=== PATIENT | female | born 1975 | race Two or more races ===

== ENCOUNTER 2018-04-25 09:27 | Inpatient (IN) | payer OTHER, MEDICAID ==
[~2018-04-25] VITALS: Ht 154.9 cm; Wt 55.0 kg
[2018-04-25 09:39] VITALS: Ht 154.9 cm; Wt 55.0 kg
[2018-04-25 12:04] LABS: PLATELET COUNT 296 x10^3mcL (130-400); RED CELL DISTRIBUTION WIDTH 13.5 % (11.5-14.5)
[2018-04-25 12:13] LABS: CALCIUM 8.4 mg/dL (8.5-10.1); CARBON DIOXIDE 25.3 mmol/L (21-32); CREATININE SERUM 1.3 mg/dL (0.6-1.0); POTASSIUM SERUM 3.7 mmol/L (3.5-5.1)
[2018-04-25 12:13] LABS: UA SPECIFIC GRAVITY >=1.030 (1.005-1.035); microscopic required? YES; urine erythrocyte 2+ (NEGATIVE)
[2018-04-25 12:24] LABS: T3 TOTAL 0.61 ng/mL
[2018-04-25 12:25] LABS: BILIRUBIN TOTAL 0.97 mg/dL (0.20-1.00); TOTAL PROTEIN, SERUM 6.8 g/dL (6.4-8.2)
[2018-04-25 12:26] LABS: ALBUMIN 3.3 g/dL (3.4-5.0)
[2018-04-25 12:35] LABS: C REACTIVE PROTEIN 18.9 mg/dL (<=0.9)
[2018-04-25 12:44] LABS: FREE T4 1.18 ng/dL (0.76-1.46); FREE THYROXINE INDEX 2.2 ug/dL (1.4-4.5); T4(THYROXINE) 6.6 ug/dL (4.7-13.3)
[2018-04-25 12:45] LABS: BASOPHIL 0 % (0-2); MONOCYTE 6 % (0-7)
[2018-04-25 12:46] LABS: BAND NEUTROPHIL 10 % (0-10); SEGMENTED NEUTROPHILS 82 % (37-75)
[2018-04-25 12:57] LABS: ERYTHROCYTE SED RATE 11 mm/hr (0-20)
[2018-04-25 12:59] LABS: CK-MB < 0.5 ng/mL (0-3.6); CREATINE KINASE 43 U/L (26-192)
[2018-04-25 14:30] VITALS: BP 96/53
[2018-04-25 18:19] VITALS: BP 80/40
[2018-04-25 18:49] VITALS: BP 95/52
[2018-04-25 21:00] VITALS: BP 95/55
[2018-04-26 05:30] VITALS: BP 96/54
[2018-04-26 08:38] VITALS: BP 102/62
[2018-04-26 10:50] LABS: PLATELET COUNT 230 x10^3mcL (130-400); RED CELL DISTRIBUTION WIDTH 13.9 % (11.5-14.5)
[2018-04-26 11:27] LABS: CALCIUM 7.2 mg/dL (8.5-10.1); CARBON DIOXIDE 22.8 mmol/L (21-32); CHLORIDE SERUM 106 mmol/L (98-107); GFR1 > 60 mL/min; GLUCOSE SERUM 121 mg/dL (74-106); POTASSIUM SERUM 3.4 mmol/L (3.5-5.1); SODIUM SERUM 135 mmol/L (136-145)
[2018-04-26 11:29] LABS: BAND NEUTROPHIL 9 % (0-10); BASOPHIL 0 % (0-2); MONOCYTE 4 % (0-7); SEGMENTED NEUTROPHILS 80 % (37-75)
[2018-04-26 12:58] LABS: PLATELET COUNT 228 x10^3mcL (130-400); RED CELL DISTRIBUTION WIDTH 13.9 % (11.5-14.5)
[2018-04-26 13:00] VITALS: BP 108/70
[2018-04-26 13:05] LABS: BAND NEUTROPHIL 10 % (0-10); BASOPHIL 0 % (0-2); MONOCYTE 4 % (0-7); SEGMENTED NEUTROPHILS 79 % (37-75)
[2018-04-26 13:42] LABS: CALCIUM 7.1 mg/dL (8.5-10.1); CARBON DIOXIDE 21.3 mmol/L (21-32); CHLORIDE SERUM 107 mmol/L (98-107); CREATININE SERUM 0.9 mg/dL (0.6-1.0); GFR1 > 60 mL/min; GLUCOSE SERUM 98 mg/dL (74-106); POTASSIUM SERUM 3.4 mmol/L (3.5-5.1); SODIUM SERUM 136 mmol/L (136-145)
[2018-04-26 18:10] VITALS: BP 112/77
[2018-04-26 20:46] VITALS: BP 105/70
[2018-04-27 06:22] VITALS: BP 111/71
[2018-04-27 07:44] LABS: BASOPHIL % 0.1 % (0-2); PLATELET COUNT 213 x10^3mcL (130-400); RED CELL DISTRIBUTION WIDTH 14.1 % (11.5-14.5)
[2018-04-27 07:56] LABS: CALCIUM 6.6 mg/dL (8.5-10.1); CARBON DIOXIDE 22.9 mmol/L (21-32); CHLORIDE SERUM 108 mmol/L (98-107); CREATININE SERUM 0.7 mg/dL (0.6-1.0); GFR1 > 60 mL/min; GLUCOSE SERUM 92 mg/dL (74-106); MAGNESIUM 1.9 mg/dL (1.8-2.4); PHOSPHOROUS 1.4 mg/dL (2.5-4.9); POTASSIUM SERUM 3.5 mmol/L (3.5-5.1); SODIUM SERUM 139 mmol/L (136-145)
[2018-04-27 09:54] VITALS: BP 123/76
[2018-04-27 13:20] VITALS: BP 122/73
[2018-04-27 17:57] VITALS: BP 125/77
[2018-04-27 20:49] VITALS: BP 116/76
[2018-04-28 05:22] VITALS: BP 113/72
[2018-04-28 06:07] LABS: BASOPHIL % 0.5 % (0-2); PLATELET COUNT 264 x10^3mcL (130-400); RED CELL DISTRIBUTION WIDTH 14.2 % (11.5-14.5)
[2018-04-28 06:31] LABS: CARBON DIOXIDE 25.7 mmol/L (21-32); CHLORIDE SERUM 107 mmol/L (98-107); CREATININE SERUM 0.8 mg/dL (0.6-1.0); GFR1 > 60 mL/min; GLUCOSE SERUM 90 mg/dL (74-106); MAGNESIUM 1.8 mg/dL (1.8-2.4); PHOSPHOROUS 2.9 mg/dL (2.5-4.9); POTASSIUM SERUM 3.7 mmol/L (3.5-5.1); SODIUM SERUM 139 mmol/L (136-145)
[2018-04-28] MEDS ORDERED: LEVAQUIN750 MG PO (09:53)
[2018-04-28 10:16] VITALS: BP 121/65
[2018-04-28 10:55] VITALS: BP 121/65
== END 2018-04-28 12:06 | disposition home or self-care (01) | DRG 871 ==
LOC: ED 09:27 → MU 12:50 → DU 12:50 → MU 04-27 15:03
PROVIDERS: Internal Medicine; Specialist
DX: A41.9 Sepsis, unspecified organism (principal); N17.0 Acute kidney failure with tubular necrosis; N39.0 Urinary tract infection, site not specified; E87.1 Hypo-osmolality and hyponatremia; R65.20 Severe sepsis without septic shock; E87.6 Hypokalemia; E86.0 Dehydration; Z68.23 Body mass index [BMI] 23.0-23.9, adult
CPT/HCPCS: 36600; 83880; 84439; 87804; C9113; J0696; J1644; J1885; J2543; J7030; Q0092